=== PATIENT | female | born 1955 | race Caucasian/White ===

== ENCOUNTER 2021-02-09 09:32 | Day surgery (SDC) | payer OTHER ==
[2021-02-09] MEDS ORDERED: fentaNYL citrate 0.05 MG/ML VIAL ONE (13:35)
[2021-02-09] MEDS ORDERED: LIDOCAINE 2% 100 MG/5 ML UJET TP ONE ×2 (13:36→16:10)
[2021-02-09] MEDS ORDERED: fentaNYL citrate 0.05 MG/ML VIAL IVP ONE (16:10)
== END 2021-02-09 15:10 | disposition home or self-care (01) ==
LOC: MDS 09:32 → MMU 09:35 → MDS 15:10
PROVIDERS: ATTEND Internal Medicine Gastroenterology
DX: K62.5 Hemorrhage of anus and rectum (principal); K57.30 Diverticulosis of large intestine without perforation or abscess without bleeding; K76.6 Portal hypertension; Z20.822 Contact with and (suspected) exposure to COVID-19
CPT/HCPCS: 88305; J3010; U0003